=== PATIENT | male | born 1995 | race Caucasian/White ===

== ENCOUNTER 2018-08-24 10:19 | Emergency (ER) | payer BC ==
[~2018-08-24] VITALS: Ht 177.8 cm; Wt 63.0 kg
[2018-08-24 10:19] VITALS: BP_SYST 122
--- NOTE | 2018-08-24 10:19 | NUR ---
BROUGHT BACK TO BED #5 AND TRIAGED. REPORT GIVEN TO MISBAH
--- NOTE | 2018-08-24 10:48 | NUR ---
PATIENT CAME IN COMPLAINING OF NAUSEA AND VOMITING FOR 3 WEEKS. PATIENT SAID HES HAS IBS. PATIENT SAID HE FEELS CONSTIPATED AT THE MOMENT. PATIENT COMPLAINING OF ABD PAIN /. PATIENT SAID HES BEEN TAKING ANTACIDS AND HELP A LITTLE. PATIENT SAID HE'S HAD DECREASED APPITITE. PATIENT ALERT AND ORIENTED X4.
--- NOTE | 2018-08-24 10:50 | NUR ---
ER Dr. BURCIAGA at bedside examining patient.
[2018-08-24] MEDS ORDERED: KETOROLAC TROMETHAMINE 30 MG VIAL IVP ONE (11:00)
[2018-08-24] MEDS ORDERED: ONDANSETRON HCL 4 MG/2 ML VIAL IVP ONE (11:00)
--- NOTE | 2018-08-24 11:19 | NUR ---
PATIENT LEAVING TO X RAY IN STABLE CONDITION.
[2018-08-24 11:31] LABS: BASOPHILS % (AUTO) 0.3 % (0.0-2.0); EOSINOPHILS # (AUTO) 0.1 K/uL (0.0-0.4); EOSINOPHILS % (AUTO) 1.3 % (0.0-4.0); HEMATOCRIT 44.9 % (36-54); HEMOGLOBIN 15.1 g/dL (14.0-18.0); LYMPHOCYTES # (AUTO) 1.5 K/uL (1.0-5.5); LYMPHOCYTES % (AUTO) 22.4 % (20.5-51.5); MEAN CORPUSCULAR HEMOGLOBIN 29 pg (27-31); MEAN CORPUSCULAR HGB CONC 34 % (32-36); MEAN CORPUSCULAR VOLUME 86 fL (79.0-98.0); MONOCYTES # (AUTO) 0.3 K/uL (0.0-1.0); NEUTROPHILS # (AUTO) 4.7 K/uL (1.8-7.7); PLATELET COUNT (AUTO) 286 K/uL (130-430); RED BLOOD CELL COUNT(AUTO) 5.21 MIL/uL (4.2-6.2); RED CELL DISTRIBUTION WIDTH 12.8 % (9.0-15.0); WHITE BLOOD COUNT (AUTO) 6.7 K/uL (4.8-10.8)
--- NOTE | 2018-08-24 11:33 | NUR ---
PATIENT BACK FROM X RAY IN STABLE CONDITION.
[2018-08-24 11:34] LABS: CALCIUM 9.9 mg/dL (8.4-11.0); CREATININE 0.86 mg/dL (0.55-1.30); POTASSIUM 3.4 mmol/L (3.5-5.1)
[2018-08-24 11:38] LABS: ALBUMIN 4.7 g/dL (3.4-4.8)
--- NOTE | 2018-08-24 12:19 | NUR ---
Patient given written and verbal discharge instructions and verbalizes understanding. ER MD discussed with patient the results and treatment provided. Patient in stable condition. ID arm band removed. IV catheter removed intact and dressing applied, no active bleeding.Rx of zofran given. Patient educated on pain management and to follow up with PMD. Pain Scale 3/10 tolerable. Opportunity for questions provided and answered. Medication side effect fact sheet provided.
[2018-08-24 12:20] VITALS: BP_SYST 122
== END 2018-08-24 12:20 | disposition home or self-care (01) ==
LOC: SED 10:19
DX: K29.70 Gastritis, unspecified, without bleeding (principal); J45.909 Unspecified asthma, uncomplicated
CPT/HCPCS: 36415; 74021; 80053; 83690; 85025; 96374; 96375; 99284; J1885; J2405